=== PATIENT | male | born 1995 | race African-American/Black ===

== ENCOUNTER 2025-04-23 16:10 | Emergency (ER) | payer SELFPAY ==
[~2025-04-23] VITALS: Ht 177.8 cm; Wt 63.0 kg
[2025-04-23 16:10] VITALS: O2SAT 98
[2025-04-23 16:23] VITALS: BP 126/76; PULSE 60; RESP 18; TEMP 36.9; O2SAT 100
[2025-04-23 18:12] LABS: BASOPHILS % 0.3 % (0.0-2.0); EOSINOPHILS % 0.0 % (0.0-5.0); HEMATOCRIT. 46.6 % (42.0-52.0); HEMOGLOBIN. 15.4 g/dL (14.0-18.0); LYMPHOCYTES % 9.9 % (20.0-50.0); MEAN PLATELET VOLUME 8.3 fl (7.4-10.4); MONOCYTES % 6.3 % (2.0-8.0); NEUTROPHILS % 83.5 % (40.0-76.0); PLATELET 224 x1000/uL (130-400); RED BLOOD CELL COUNT 5.21 mill/uL (4.7-6.1); RED CELL DISTRIBUTION WIDTH 13.6 % (11.6-14.6)
[2025-04-23 18:45] LABS: CREATININE 1.2 mg/dL (0.6-1.3); UREA NITROGEN BLOOD 12 mg/dL (9-23)
[2025-04-23 18:46] LABS: ETHANOL BLOOD < 10 mg/dL (<10)
[2025-04-23] MEDS: ONDANSETRON 4MG ODT PO ONE (20:26)
[2025-04-23] MEDS ORDERED: ONDA-239 PO (20:41)
== END 2025-04-23 21:02 | disposition home or self-care (01) ==
LOC: ER 16:10
DX: R11.10 Vomiting, unspecified (principal); R19.7 Diarrhea, unspecified; E86.0 Dehydration
CPT/HCPCS: 80048; 80320; 85025; 36415; 99283; Q0162; G0480